=== PATIENT | male | born 1980 | race African-American/Black ===

== ENCOUNTER 2021-02-09 15:38 | Inpatient (IN) ==
[2021-02-09] MEDS ORDERED: traMADol 50 MG TABLET PO PRN (16:56)
[2021-02-09] MEDS ORDERED: MAGNESIUM HYDROXIDE SUSP 30 ML UDCUP PO PRN (16:56)
[2021-02-09] MEDS ORDERED: ACETAMINOPHEN 325 MG TABLET PO PRN (16:56)
[2021-02-09] MEDS ORDERED: ONDANSETRON 4 MG/2 ML VIAL IV PRN (16:56)
[2021-02-09] MEDS: SODIUM CHLORIDE 0.9% 1,000 ML IV SCH (18:00)
[2021-02-09] MEDS ORDERED: ZINC OXIDE PASTE 113 GM TUBE TOP PRN (18:45)
[2021-02-09 19:02] LABS: Basophils # 0.1 10*3/uL (0.0-0.2); Basophils % 0.5 % (0.0-0.8); Eosinophils # 0.2 10*3/uL (0.0-0.87); Eosinophils % 1.7 % (0.00-10.9); Hematocrit 39.8 VOL% (42.0-52.0); Hemoglobin 13.1 GM/DL (14.0-18.0); Immature Granulocytes % 0.4 %; Immature Granulocytes Absolute 0.04 #; Lymphocytes # 2.3 10*3/uL (1.4-4.0); Lymphocytes % 23.4 % (21.2-54.2); Mean Corpuscular HGB Conc 32.9 GM/DL (32-36); Mean Corpuscular Volume 86.1 FL (87-102); Mean Platelet Volume 10.2 FL (9.6-12.0); Monocytes % 7.6 % (1.7-12.7); Neutrophils % 66.4 % (38.7-73.9); Platelet Count 295 T/CUMM (130-400); Red Blood Count 4.62 MC/CUMM (3.8-5.5); Red Cell Distribution Width 13.4 % (9.3-17.3); White Blood Count 9.8 T/CUMM (4-12)
[2021-02-09] MEDS: ENOXAPARIN 40 MG/0.4 ML SYRINGE SUBCUT SCH (19:19)
[2021-02-09 19:33] LABS: Albumin 3.8 G/DL (3.4-5.0); Bilirubin,Total 0.5 MG/DL (0.2-1.0); Potassium 3.6 MMOL/L (3.5-5.1); Total Protein 7.8 G/DL (5.0-7.5)
[2021-02-09] MEDS: DOCUSATE SODIUM 100 MG CAPSULE PO SCH ×2 (21:14→23:15)
[2021-02-09] MEDS: METOPROLOL TARTRATE 25 MG TABLET PO SCH (23:15)
[2021-02-10] MEDS: METOPROLOL TARTRATE 25 MG TABLET PO SCH ×3 (00:05→21:21)
[2021-02-10] MEDS: SODIUM CHLORIDE 0.9% 1,000 ML IV SCH ×3 (04:10→18:37)
[2021-02-10 06:01] LABS: Basophils % 0.3 % (0.0-0.8); Eosinophils # 0.3 10*3/uL (0.0-0.87); Eosinophils % 2.7 % (0.00-10.9); Hematocrit 33.8 VOL% (42.0-52.0); Hemoglobin 11.2 GM/DL (14.0-18.0); Immature Granulocytes % 0.4 %; Immature Granulocytes Absolute 0.04 #; Lymphocytes # 2.8 10*3/uL (1.4-4.0); Lymphocytes % 30.4 % (21.2-54.2); Mean Corpuscular HGB Conc 33.1 GM/DL (32-36); Mean Corpuscular Volume 85.4 FL (87-102); Mean Platelet Volume 10.8 FL (9.6-12.0); Monocytes % 8.9 % (1.7-12.7); Neutrophils % 57.3 % (38.7-73.9); Platelet Count 244 T/CUMM (130-400); Red Blood Count 3.96 MC/CUMM (3.8-5.5); Red Cell Distribution Width 13.2 % (9.3-17.3); White Blood Count 9.2 T/CUMM (4-12)
[2021-02-10 06:13] LABS: Calcium 8.7 MG/DL (8.5-10.1); Osmolality,Calculated 279.3 MOS/KG (273-304); Potassium 3.1 MMOL/L (3.5-5.1); Total Protein 6.3 G/DL (5.0-7.5)
[2021-02-10] MEDS ORDERED: TUBERCULIN SKIN TEST 0.1 ML SYRINGE INTRADERM ONE ×2 (08:40→10:00)
[2021-02-10] MEDS ORDERED: POTASSIUM CHLORIDE 20 MEQ/15 ML UDCUP PO ONE (09:00)
[2021-02-10] MEDS: MEGESTROL 400 MG/10 ML UDCUP PO SCH ×2 (09:33→21:21)
[2021-02-10] MEDS: PANTOPRAZOLE 40 MG TABLET PO SCH (09:33)
[2021-02-10] MEDS: DOCUSATE SODIUM 100 MG CAPSULE PO SCH ×2 (09:33→21:21)
[2021-02-10] MEDS: BACLOFEN 10 MG TABLET PO SCH ×4 (09:33→21:21)
[2021-02-10] MEDS: POTASSIUM CHLORIDE 20 MEQ/15 ML UDCUP PER TUBE PRN ×4 (09:34→18:38)
[2021-02-10] MEDS: MAGNESIUM HYDROXIDE SUSP 30 ML UDCUP PO SCH ×2 (16:41→21:21)
[2021-02-10] MEDS: ENOXAPARIN 40 MG/0.4 ML SYRINGE SUBCUT SCH (21:20)
[2021-02-11] MEDS: SODIUM CHLORIDE 0.9% 1,000 ML IV SCH ×3 (02:46→23:20)
[2021-02-11] MEDS: DOCUSATE SODIUM 100 MG CAPSULE PO SCH ×2 (09:55→20:23)
[2021-02-11] MEDS: BACLOFEN 10 MG TABLET PO SCH ×4 (09:55→20:23)
[2021-02-11] MEDS: PANTOPRAZOLE 40 MG TABLET PO SCH (09:55)
[2021-02-11] MEDS: MEGESTROL 400 MG/10 ML UDCUP PO SCH ×2 (09:55→20:23)
[2021-02-11] MEDS: MAGNESIUM HYDROXIDE SUSP 30 ML UDCUP PO SCH ×2 (09:55→20:23)
[2021-02-11] MEDS: METOPROLOL TARTRATE 25 MG TABLET PO SCH ×2 (09:55→20:23)
[2021-02-11] MEDS: ENOXAPARIN 40 MG/0.4 ML SYRINGE SUBCUT SCH (20:23)
[2021-02-12] MEDS: MEGESTROL 400 MG/10 ML UDCUP PO SCH ×2 (08:56→20:14)
[2021-02-12] MEDS: DOCUSATE SODIUM 100 MG CAPSULE PO SCH ×2 (08:56→20:14)
[2021-02-12] MEDS: MAGNESIUM HYDROXIDE SUSP 30 ML UDCUP PO SCH ×2 (08:56→20:14)
[2021-02-12] MEDS: BACLOFEN 10 MG TABLET PO SCH ×4 (08:56→20:14)
[2021-02-12] MEDS: METOPROLOL TARTRATE 25 MG TABLET PO SCH ×2 (08:56→20:14)
[2021-02-12] MEDS: PANTOPRAZOLE 40 MG TABLET PO SCH (08:56)
[2021-02-12] MEDS: SODIUM CHLORIDE 0.9% 1,000 ML IV SCH ×2 (11:00→20:15)
[2021-02-12] MEDS: ENOXAPARIN 40 MG/0.4 ML SYRINGE SUBCUT SCH (20:13)
[2021-02-13 04:08] LABS: Basophils % 0.2 % (0.0-0.8); Eosinophils # 0.2 10*3/uL (0.0-0.87); Eosinophils % 1.8 % (0.00-10.9); Hematocrit 36.2 VOL% (42.0-52.0); Hemoglobin 11.8 GM/DL (14.0-18.0); Immature Granulocytes % 0.2 %; Immature Granulocytes Absolute 0.02 #; Lymphocytes # 2.5 10*3/uL (1.4-4.0); Lymphocytes % 25.6 % (21.2-54.2); Mean Corpuscular HGB Conc 32.6 GM/DL (32-36); Mean Platelet Volume 10.3 FL (9.6-12.0); Monocytes % 6.9 % (1.7-12.7); Neutrophils % 65.3 % (38.7-73.9); Platelet Count 263 T/CUMM (130-400); Red Blood Count 4.21 MC/CUMM (3.8-5.5); Red Cell Distribution Width 13.1 % (9.3-17.3); White Blood Count 9.9 T/CUMM (4-12)
[2021-02-13 04:41] LABS: Calcium 8.7 MG/DL (8.5-10.1); Osmolality,Calculated 273.7 MOS/KG (273-304)
[2021-02-13] MEDS: SODIUM CHLORIDE 0.9% 1,000 ML IV SCH ×2 (05:51→08:33)
[2021-02-13] MEDS: MEGESTROL 400 MG/10 ML UDCUP PO SCH (08:32)
[2021-02-13] MEDS: MAGNESIUM HYDROXIDE SUSP 30 ML UDCUP PO SCH (08:33)
[2021-02-13] MEDS: METOPROLOL TARTRATE 25 MG TABLET PO SCH (08:33)
[2021-02-13] MEDS: PANTOPRAZOLE 40 MG TABLET PO SCH (08:33)
[2021-02-13] MEDS: BACLOFEN 10 MG TABLET PO SCH ×2 (08:33→13:53)
[2021-02-13] MEDS: DOCUSATE SODIUM 100 MG CAPSULE PO SCH (08:33)
[2021-02-13 15:54] VITALS: BP 107/75
== END 2021-02-13 16:20 | disposition home health service (06) | DRG 922 ==
LOC: N.5E 17:45
PROVIDERS: ADMIT Internal Medicine; ATTEND Internal Medicine